=== PATIENT | female | born 1985 | race Caucasian/White ===

== ENCOUNTER 2020-01-23 09:03 | Emergency (ER) | payer BC ==
[2020-01-23 09:17] VITALS: BP 141/85
--- NOTE | 2020-01-23 09:37 | UC ---
Pediatric GI/ HPI - History Of Current Complaint Chief Complaint: UCGU Stated Complaint: URINARY COMPLAINT Time Seen by Provider: 01/23/20 09:05 Pain Intensity: 7 - Allergies/Home Medications Allergies/Adverse Reactions: Allergies Allergy/AdvReac Type Severity Reaction Status Date / Time morphine Allergy vomits Verified 01/23/20 09:18 Home Medications: Home Medications NK [No Home Medications Reported] 01/23/20 [History Confirmed 01/23/20] Physical Exam Vital Signs: Initial Vital Signs Temp 98.3 F 01/23/20 09:12 Pulse 86 01/23/20 09:12 Resp 18 01/23/20 09:12 BP 141/85 01/23/20 09:12 Pulse Ox 100 01/23/20 09:12 Discharge ED - Discharge Plan Referrals: Jesus Quezada [Primary Care Provider] -
--- NOTE | 2020-01-23 09:48 | UC ---
Complaint Female HPI - HPI Summary HPI Summary: The patient is a 34 yo female with dysuria x 1 week no f/c no n/v/d no back or abd pain some vaginal d/c no itching right inguinal LN had herpes labialis recently - History Of Current Complaint Chief Complaint: UCGU Stated Complaint: URINARY COMPLAINT Time Seen by Provider: 01/23/20 09:05 Hx Obtained From: Patient Hx Last Menstrual Period: ablasion Onset/Duration: Gradual Onset, Lasting Days Timing: Intermittent, Lasting Minutes Severity Initially: Moderate Severity Currently: Moderate Pain Intensity: 7 - with urination Pain Scale Used: 0-10 Numeric Aggravating Factor(s): Movement, Urination Associated Signs And Symptoms: Positive: Vaginal Discharge. Negative: Nausea, Genital Swelling, Genital Blisters, Retained Foregin Body (Specify) - Allergies/Home Medications Allergies/Adverse Reactions: Allergies Allergy/AdvReac Type Severity Reaction Status Date / Time morphine Allergy vomits Verified 01/23/20 09:18 Home Medications: Home Medications metroNIDAZOLE * [Flagyl] 500 mg PO BID #14 tablet 01/23/20 [Rx] PMH/Surg Hx/FS Hx/Imm Hx Previously Healthy: Yes - Surgical History Surgical History: Yes Surgery Procedure, Year, and Place: Bilat wrist surgery, x1, uterine ablasion - Family History Known Family History: Positive: Hypertension, Non-Contributory - Social History Alcohol Use: Occasionally Substance Use Type: None Smoking Status (MU): Never Smoked Tobacco Review of Systems All Other Systems Reviewed And Are Negative: Yes Constitutional: Positive: Negative Skin: Positive: Negative Eyes: Positive: Negative ENT: Positive: Negative Respiratory: Positive: Negative Cardiovascular: Positive: Negative Gastrointestinal: Positive: Negative Genitourinary: Positive: Dysuria Motor: Positive: Negative Neurovascular: Positive: Negative Musculoskeletal: Positive: Negative Neurological/Mental Status: Positive: Negative Psychological: Positive: Negative Physical Exam Triage Information Reviewed: Yes Appearance: Well-Appearing, No Pain Distress, Well-Nourished Vital Signs: Initial Vital Signs Temp 98.3 F 01/23/20 09:12 Pulse 86 01/23/20 09:12 Resp 18 01/23/20 09:12 BP 141/85 01/23/20 09:12 Pulse Ox 100 01/23/20 09:12 Vital Signs Reviewed: Yes Eyes: Positive: Conjunctiva Clear ENT: Positive: Hearing grossly normal. Negative: Nasal congestion, Nasal drainage, Trismus, Muffled voice, Hoarse voice Neck: Positive: Supple, Nontender, No Lymphadenopathy Respiratory: Positive: Lungs clear, Normal breath sounds, No respiratory distress Cardiovascular: Positive: RRR, No Murmur Abdomen Description: Positive: Nontender, No Organomegaly, Soft. Negative: CVA Tenderness (R), CVA Tenderness (L) Bowel Sounds: Positive: Present Pelvic Exam: Positive: No Cerv. Motion Tender, No Masses, Discharge, Ulcers - single minute ulceration left labia, Other - right inguinal lymphnode. Negative : Active Bleeding, Blood, Cervicitis, Mass, Tender w/ Cervical Motion, Tender Adnexa, Tender Uterus Musculoskeletal: Positive: ROM Intact, No Edema Neurological: Positive: Alert Psychological Exam: Normal Skin Exam: Normal Diagnostics - Laboratory Lab Results: UA ++ RBCs uHcg (-) Complaint Female Dx - Differential Dx/Diagnosis Provider Diagnosis: Vaginitis, Dysuria Discharge ED - Sign-Out/Discharge Documenting (check all that apply): Patient Departure All imaging exams completed and their final reports reviewed: No Studies - Discharge Plan Condition: Stable Disposition: HOME Prescriptions: metroNIDAZOLE * [Flagyl] 500 mg PO BID #14 tablet Patient Education Materials: Vaginitis (ED), Dysuria (ED) Referrals: Jesus Quezada [Primary Care Provider] - 5 Days (if not better) - Billing Disposition and Condition Condition: STABLE Disposition: Home
[2020-01-24 13:55] LABS: Trichomonas vag NAA Female Negative (Negative)
[2020-01-24 14:20] LABS: Chlamydia trachomatis NAA Negative (Negative); Neisseria gonorrhoeae (GC) NAA Negative (Negative)
[2020-01-25 19:50] LABS: Herpes Source LEFT LABIA
--- NOTE | 2020-01-26 07:24 | UC ---
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 Nursing to call patient and let them know of the results and that I gave called in a prescription for valacyclovir to be taken as directed for 7 days. 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 Course/Dx - Diagnoses Provider Diagnoses: Vaginitis, Dysuria Discharge ED - Sign-Out/Discharge Documenting (check all that apply): Patient Departure All imaging exams completed and their final reports reviewed: No Studies - Discharge Plan Condition: Stable Disposition: HOME Prescriptions: metroNIDAZOLE * [Flagyl] 500 mg PO BID #14 tablet Valacyclovir HCl [Valacyclovir] 1,000 mg PO TID #21 tablet Patient Education Materials: Vaginitis (ED), Dysuria (ED) Referrals: Jesus Quezada [Primary Care Provider] - 5 Days (if not better) Additional Instructions: tests pending - Billing Disposition and Condition Condition: STABLE Disposition: Home
== END 2020-01-23 10:17 | disposition home or self-care (01) ==
LOC: UCCORT 09:03
DX: N76.0 Acute vaginitis (principal); R30.0 Dysuria; Z88.5 Allergy status to narcotic agent
CPT/HCPCS: 81003; 84702; 87086; 87480; 87491; 87510; 87529; 87591; 87661; 99212; G0463